=== PATIENT | female | born 1985 | race Hispanic/Latino ===

== ENCOUNTER → 2023-11-03 | Outpatient (CLI) | payer OTHER | LOC: M SLEEP 20:00 | PROVIDERS: ATTEND Nurse Practitioner Family | DX: G47.33 Obstructive sleep apnea (adult) (pediatric) (principal); R40.0 Somnolence ==

== ENCOUNTER → 2023-12-28 | Outpatient (CLI) | payer OTHER | LOC: M SLEEP 20:00 | PROVIDERS: ATTEND Nurse Practitioner Family | DX: G47.33 Obstructive sleep apnea (adult) (pediatric) (principal) ==

== ENCOUNTER → 2025-07-24 | Outpatient (CLI) | payer OTHER | LOC: M WHC 09:28 | PROVIDERS: ATTEND Physician Assistant | DX: Z12.31 Encounter for screening mammogram for malignant neoplasm of breast (principal); R92.323 Mammographic fibroglandular density, bilateral breasts ==